=== PATIENT | male | born 1955 | race Hispanic/Latino ===

== ENCOUNTER → 2020-06-14 | Outpatient (CLI) | payer MEDICARE, OTHER ==
--- NOTE | 2020-06-15 09:10 | RAD ---
EXAM DESCRIPTION: Pelvis CLINICAL HISTORY: 64 years Male, HIP PAIN COMPARISON: None. FINDINGS: Orthopedic hardware in the lower lumbar spine. Sacrum appears intact. Degenerative narrowing of the SI joints. Multiple metallic densities in the region of the prostate consistent with brachytherapy seeds. Clinical history is hip pain. No evidence of hip fracture or dislocation. No bony destructive lesion. IMPRESSION: Orthopedic hardware in the lumbosacral spine. Intact bony pelvis. Electronically signed by: Ortega Smiley MD 06/15/2020 9:09 AM [facility]
--- NOTE | 2020-06-15 09:12 | RAD ---
EXAM DESCRIPTION: Knee x-ray four views,Right Complete CLINICAL HISTORY: 64 years, Male, OSTEOARTHRITIS OF KNEE COMPARISON: None TECHNIQUE: Four x-ray views of the right knee standing FINDINGS: No fracture or dislocation. Bones appear normally mineralized with normal trabecular pattern. Narrowed appearance of medial compartment on frontal view with medial and lateral joint line spurring and spurring at the intercondylar notch. Lateral view shows normal position of the patella. Degenerative narrowing of the patellofemoral joint with posterior patellar spurring. No suprapatellar knee joint effusion. Normal contour of quadriceps and patellar tendons. No abnormal patellar tilt or subluxation on patellar sunrise view. Degenerative narrowing of the patellofemoral joint with spurring at the lateral more than medial patellar margins. Anterior femoral trochlear marginal osteophyte formation. Oblique view shows intact tibial plateau and proximal fibula. IMPRESSION: Advanced degenerative osteoarthrosis of the right knee Electronically signed by: Ortega Smiley MD 06/15/2020 9:11 AM [employer] [facility]
--- NOTE | 2020-06-15 09:20 | RAD ---
EXAM: Knee,Left Complete INDICATION: 64 years Male, OSTEOARTHRITIS OF KNEE COMPARISON: None available FINDINGS: 5 views of the left knee were performed. On the frontal view, horizontally oriented linear lucency is noted at the medial tibial plateau. The findings are favored to reflect meniscal calcification or potentially chondrocalcinosis. However, if there is history of recent trauma, fracture is not excluded. Chondrocalcinosis or meniscal calcification is also noted at the lateral tibial plateau. No joint dislocation. No destructive osseous lesion. Moderate degenerative change in the left knee, primarily with medial joint space narrowing and subchondral sclerosis. No suprapatellar joint effusion. IMPRESSION: 1. Moderate degenerative change in the left knee. 2. Findings at the left knee medial tibial plateau probably represent chondrocalcinosis or meniscal calcification. However, if there was history of recent trauma to the left knee, fracture is not entirely excluded. Electronically signed by: Merle Barbosa MD 06/15/2020 9:18 AM [facility]
== END ==
LOC: RAD 08:23
PROVIDERS: ATTEND Orthopaedic Surgery
DX: M17.0 Bilateral primary osteoarthritis of knee (principal); M89.9 Disorder of bone, unspecified; M25.551 Pain in right hip; M25.552 Pain in left hip